=== PATIENT | female | born 1995 | race Caucasian/White ===

== ENCOUNTER 2017-02-20 21:38 | Emergency (ER) | payer SELFPAY ==
[~2017-02-20] VITALS: Ht 167.6 cm; Wt 77.3 kg
[2017-02-20 21:42] VITALS: TEMP 97
[2017-02-20] MEDS ORDERED: PREDNISONE20 MG PO (22:07)
[2017-02-20] MEDS ORDERED: EPIPEN 2-PAK1 MG/ML IM (22:07)
[2017-02-20 22:40] VITALS: BP 112/810; PULSE 102
== END 2017-02-20 22:49 | disposition home or self-care (01) ==
LOC: COL.ER 21:38
DX: R21 Rash and other nonspecific skin eruption (principal); T78.1XXA Other adverse food reactions, not elsewhere classified, initial encounter; R06.00 Dyspnea, unspecified; L50.9 Urticaria, unspecified
CPT/HCPCS: J0171; J1200; J2405; J2930